=== PATIENT | female | born 1935 | race Caucasian/White ===

== ENCOUNTER → 2016-12-19 | Outpatient (CLI) | payer MEDICARE, BC | LOC: RAD 07:38 | DX: K21.9 Gastro-esophageal reflux disease without esophagitis (principal); R13.10 Dysphagia, unspecified | CPT/HCPCS: 74246 ==

== ENCOUNTER 2017-01-29 17:29 | Emergency (ER) | payer MEDICARE, BC | END 2017-01-29 19:33 | disposition home or self-care (01) | LOC: ER1 17:29 | DX: M10.9 Gout, unspecified (principal); E78.5 Hyperlipidemia, unspecified; E07.9 Disorder of thyroid, unspecified; I10 Essential (primary) hypertension; Z90.710 Acquired absence of both cervix and uterus; Z85.41 Personal history of malignant neoplasm of cervix uteri; Z79.899 Other long term (current) drug therapy | CPT/HCPCS: 36415; 73630; 84550; 96372; 99283; J1100 ==

== ENCOUNTER → 2021-04-26 | Outpatient (CLI) | payer OTHER ==
[~2021-04-26] MED LIST: ASPIR 8181 MG PO; NITROSTAT0.4 MG SL
== END ==
LOC: MRI 04-16 13:00
DX: H90.3 Sensorineural hearing loss, bilateral (principal)
CPT/HCPCS: 70551; 82565; 84520